=== PATIENT | female | born 1990 | race Caucasian/White ===

== ENCOUNTER → 2019-10-27 | Outpatient (REF) | payer OTHER ==
[2019-10-27 13:36] LABS: THYROID STIMULATING HORMONE 3.36 uIU/ML (0.358-3.740)
[2019-10-27 13:39] LABS: TOTAL 25(OH) VITAMIN D 24.2 NG/ML (30.0-100.0)
[2019-10-28 10:43] LABS: MUMPS VIRUS IgG ANTIBODY 43.2 AU/mL (Immune >10.9)
[2019-10-28 11:24] LABS: RUBELLA IgG QUALITATIVE IMMUNE (IMMUNE)
== END ==
LOC: M SFHCCLAY 09:08
PROVIDERS: ATTEND Family Medicine
DX: Z13.21 Encounter for screening for nutritional disorder (principal); Z78.9 Other specified health status; L65.9 Nonscarring hair loss, unspecified
CPT/HCPCS: 82306; 84443; 86735; 86762; 86765; 90471; 90472; 90682; 90734; G0463

== ENCOUNTER 2022-09-16 10:16 | Inpatient (IN) | payer OTHER ==
[~2022-09-16] VITALS: Ht 152.4 cm; Wt 87.1 kg
[2022-09-16] VITALS (8 sets, daily range): BP systolic 118–139; BP diastolic 62–83
[2022-09-16] MEDS ORDERED: PRENTAB9 PO (10:21)
[2022-09-16] MEDS ORDERED: ASPI81CH33 PO (10:22)
[2022-09-16] MEDS ORDERED: HOME MED LIST COMPLETE! XX SCH (10:25)
[2022-09-16] MEDS ORDERED: OXYTOCIN INJ 10 UNITS/ML VIAL (J2590) IV PRN (11:20)
[2022-09-16] MEDS ORDERED: OXYTOCIN INJ 10 UNITS/ML VIAL (J2590) IM PRN (11:20)
[2022-09-16] MEDS ORDERED: LIDOCAINE 1% MDV 20ML VIAL INFIL PRN (11:20)
[2022-09-16] MEDS ORDERED: METHYLERGONOVINE MALEATE 0.2 MG/ML VIAL (J2210) IM PRN (11:20)
[2022-09-16] MEDS ORDERED: TRANEXAMIC ACID INJection 1,000 MG in NS 100 ML IV PRN (11:20)
[2022-09-16] MEDS ORDERED: CARBOPROST TROMETHAMINE 250 MCG/ML AMP IM PRN (11:20)
[2022-09-16] MEDS ORDERED: OXYTOCIN DRIP 30 UNITS in IV 1 EA IV PRN ×6 (11:20)
[2022-09-16 11:56] LABS: BASO % 0.6 % (0.0-1.0); EOS # 0.2 10^3/uL (0.0-0.5); EOS % 2.2 % (0.0-3.0); HEMATOCRIT 41.7 % (36.0-47.0); LYMPH # 1.5 10^3/uL (1.5-5.0); LYMPH % 21.3 % (24.0-44.0); MEAN CORPUSCULAR HEMOGLOBIN 29.9 pg (27.0-33.0); MEAN CORPUSCULAR HGB CONC 33.6 g/dl (32.0-36.5); MEAN CORPUSCULAR VOLUME 88.9 fl (80.0-96.0); MONO # 0.6 10^3/uL (0.0-0.8); MONO % 7.7 % (2.0-8.0); NEUTROPHILS # 4.8 10^3/uL (1.5-8.5); PLATELET COUNT, AUTOMATED 237 10^3/uL (150-450); RED BLOOD COUNT 4.69 10^6/uL (4.00-5.40); WHITE BLOOD COUNT 7.2 10^3/uL (4.0-10.0)
[2022-09-16] MEDS: miSOPROStol 50MCG 1/2 TABLET PO SCH ×3 (12:25→21:50)
[2022-09-16] MEDS: LR 1,000 ML IV SCH ×2 (12:29→21:00)
[2022-09-16 12:38] LABS: ALT/SGPT 20 U/L (12-78); BILIRUBIN,TOTAL 0.9 MG/DL (0.2-1.0); CREATININE FOR GFR 0.63 MG/DL (0.55-1.30); GLOMERULAR FILTRATION RATE > 60.0 (>60); LDH LACTATE DEHYDROGENASE 193 U/L (84-246); URIC ACID 5.7 MG/DL (2.6-6.0)
[2022-09-16 13:52] LABS: APPEARANCE, URINE MANUAL CLEAR (CLEAR); COLOR, URINE MANUAL YELLOW (YELLOW)
[2022-09-16 13:53] LABS: BILIRUBIN, URINE MANUAL NEGATIVE (NEGATIVE); BLOOD URINE MANUAL POSITIVE (NEGATIVE); GLUCOSE, URINE (UA) MANUAL NEGATIVE (NEGATIVE); KETONE, URINE MANUAL NEGATIVE (NEGATIVE); LEUKOCYTE ESTERASE, URINE MAN NEGATIVE (NEGATIVE); NITRITE, URINE MANUAL NEGATIVE (NEGATIVE); PROTEIN, URINE MANUAL TRACE mg/dL (NEGATIVE); UROBILINOGEN, URINE MANUAL NORMAL (NORMAL)
[2022-09-16 14:02] LABS: BACTERIA, URINE MOD AMOUNT; RBC, URINE 20-30 /hpf (0-3); SQUAMOUS EPITHELIAL CELL URINE MOD AMOUNT /hpf (SMALL AMT)
[2022-09-16 14:03] LABS: HYALINE CAST, URINE NONE SEEN /lpf (0-1)
[2022-09-16 14:26] LABS: CREATININE,RANDOM URINE 35.7 MG/DL
[2022-09-16] MEDS ORDERED: BUTORPHANOL 2 MG/ML INJ (J0595) IV PRN (17:40)
[2022-09-16] MEDS ORDERED: PROMETHAZINE 25MG/ML 1ML VIAL IV PRN (17:40)
[2022-09-16] MEDS ORDERED: OXYTOCIN DRIP 30 UNITS in IV 1 EA IV SCH (21:50)
[2022-09-17] VITALS (19 sets, daily range): BP systolic 117–143; BP diastolic 55–83
[2022-09-17] MEDS: miSOPROStol 50MCG 1/2 TABLET PO SCH ×3 (00:15→08:15)
[2022-09-17] MEDS ORDERED: EPIDURAL/PCA KEYS XX PRN (01:50)
[2022-09-17] MEDS ORDERED: ONDANSETRON 4MG 2ML VIAL IV PRN (01:50)
[2022-09-17] MEDS ORDERED: NALOXONE INJ 0.4MG/1ML VIAL (J2310 PER 1MG) IV PRN (01:50)
[2022-09-17] MEDS ORDERED: LR 500 ML IV PRN (01:50)
[2022-09-17] MEDS ORDERED: FENTANYL/ROPIVACAINE/NACL BAG 100 ML EPIDURAL SCH (01:50)
[2022-09-17] MEDS ORDERED: ePHEDrine SULFATE 25 MG/5 ML(5MG/ML) SYRINGE IVP PRN (01:50)
[2022-09-17] MEDS ORDERED: diphenhydrAMINE 50MG/ML VIAL (J1200) IV PRN (01:50)
[2022-09-17] MEDS: LR 1,000 ML IV SCH (06:06)
[2022-09-17] MEDS ORDERED: RHOGAM 300 MCG (1500 IU) INJ (J2790) IM SCH (08:30)
[2022-09-17] MEDS ORDERED: IBUPROFEN 600MG TAB PO PRN (08:30)
[2022-09-17] MEDS ORDERED: ACETAMINOPHEN TAB 650MG DOSE (2X325MG) PO PRN (08:30)
[2022-09-17] MEDS ORDERED: DIBUCAINE 1% OINTMENT 30GM TOP PRN (08:30)
[2022-09-17] MEDS ORDERED: METHYLERGONOVINE MALEATE 0.2 MG TAB PO PRN (08:30)
[2022-09-17] MEDS ORDERED: ACETAMINOPHEN 500 MG TAB PO PRN (08:30)
[2022-09-17] MEDS ORDERED: DOCUSATE SODIUM 100MG CAPSULE PO PRN (08:30)
[2022-09-17] MEDS: PRENATAL VITAMINS CHEWABLE TABLET PO SCH (09:40)
[2022-09-17] MEDS: IBUPROFEN 800 MG TAB PO PRN (15:11)
[2022-09-18 02:00] VITALS: BP 123/72
[2022-09-18] MEDS: IBUPROFEN 800 MG TAB PO PRN ×2 (03:35→18:47)
[2022-09-18 06:00] VITALS: BP 112/57
[2022-09-18] MEDS: PRENATAL VITAMINS CHEWABLE TABLET PO SCH (07:47)
[2022-09-18] MEDS ORDERED: INFLUENZA QUADRIVALENT PF VACCINE 0.5ML SYRINGE IM.IMMUN ONE (09:00)
[2022-09-18 10:00] VITALS: BP 118/59
[2022-09-18 14:00] VITALS: BP 118/67
[2022-09-18 17:56] VITALS: BP 117/61
[2022-09-18 22:00] VITALS: BP 136/70
[2022-09-19 02:00] VITALS: BP 131/73
[2022-09-19 06:00] VITALS: BP 126/69
[2022-09-19] MEDS ORDERED: MEASLES,MUMPS,RUBELLA VACCINE INJ (MMR-II) (90707) SC.IMMUN ONE (09:00)
[2022-09-19 09:55] VITALS: BP 125/65
[2022-09-19] MEDS: PRENATAL VITAMINS CHEWABLE TABLET PO SCH (10:19)
== END 2022-09-19 16:35 | disposition home or self-care (01) | DRG 807 ==
LOC: M LDI 10:16 → M OBS 09-17 10:40
PROVIDERS: ADMIT Obstetrics & Gynecology; ATTEND Advanced Practice Midwife
PROC: 3E0P7GC Introduction of Other Therapeutic Substance into Female Reproductive, Via Natural or Artificial Opening (ICD-10-PCS; 2022-09-16)
PROC: 10E0XZZ Delivery of Products of Conception, External Approach (ICD-10-PCS; principal; 2022-09-17)
PROC: 0KQM0ZZ Repair Perineum Muscle, Open Approach (ICD-10-PCS; 2022-09-17)
PROC: 10907ZC Drainage of Amniotic Fluid, Therapeutic from Products of Conception, Via Natural or Artificial Opening (ICD-10-PCS; 2022-09-17)
DX: O10.02 Pre-existing essential hypertension complicating childbirth (principal); Z37.0 Single live birth; Z3A.39 39 weeks gestation of pregnancy; O70.1 Second degree perineal laceration during delivery